=== PATIENT | female | born 1990 | race African-American/Black ===

== ENCOUNTER 2018-04-26 23:20 | Emergency (ER) | payer SELFPAY ==
[~2018-04-26] VITALS: Ht 157.5 cm; Wt 59.0 kg
[2018-04-26] MEDS ORDERED: ALBUTEROL2.5 MG/3 M INH (23:35)
[2018-04-27] MEDS ORDERED: Methocarbamol 750mg tab ORAL ONE (00:15)
[2018-04-27] MEDS ORDERED: Acetaminophen 500mg (ES) tab ORAL ONE (00:15)
[2018-04-27] MEDS ORDERED: TYLENOL EXTRA500 MG ORAL (00:21)
[2018-04-27] MEDS ORDERED: ROBAXIN-750750 MG PO (00:21)
[2018-04-27 00:32] VITALS: BP 112/78
[2018-04-27 00:33] VITALS: BP 112/78
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
== END 2018-04-27 00:33 | disposition home or self-care (01) ==
LOC: EMR 23:56
DX: R51 Headache (principal); M54.2 Cervicalgia; M54.5 Low back pain; V89.2XXA Person injured in unspecified motor-vehicle accident, traffic, initial encounter; Y92.9 Unspecified place or not applicable; J45.909 Unspecified asthma, uncomplicated
CPT/HCPCS: 99284

== ENCOUNTER 2018-08-23 13:00 | Emergency (ER) | payer OTHER ==
[~2018-08-23] VITALS: Ht 157.5 cm; Wt 59.0 kg
[~2018-08-23 13:00] MED LIST: ALBUTEROL2.5 MG/3 M INH; ROBAXIN-750750 MG PO; TYLENOL EXTRA500 MG ORAL
[2018-08-23] MEDS ORDERED: ROBAXIN500 MG PO (13:39)
[2018-08-23] MEDS ORDERED: LIDOCAINE700 M1 TP (13:39)
[2018-08-23] MEDS ORDERED: IBUPROFEN600 MG ORAL (13:39)
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
[2018-08-23] MEDS ORDERED: Ketorolac 30mg Inj IM ONE (13:45)
[2018-08-23] MEDS ORDERED: Methocarbamol 500mg tab ORAL ONE (13:45)
[2018-08-23 14:27] VITALS: BP 115/65
== END 2018-08-23 14:29 | disposition home or self-care (01) ==
LOC: EMR 14:07
DX: T14.8XXA Other injury of unspecified body region, initial encounter (principal); M54.2 Cervicalgia; M54.9 Dorsalgia, unspecified; V43.52XS Car driver injured in collision with other type car in traffic accident, sequela
CPT/HCPCS: 96372; 99283

== ENCOUNTER 2018-10-17 16:54 | Emergency (ER) | payer MEDICAID, OTHER ==
[~2018-10-17] VITALS: Ht 157.5 cm; Wt 59.0 kg
[~2018-10-17 16:54] MED LIST changes: +IBUPROFEN600 MG ORAL; +LIDOCAINE700 M1 TP; +ROBAXIN500 MG PO
[2018-10-17] MEDS ORDERED: Morphine Sulfate 4mg/ml Inj (IV/IM USE ONLY) IVP ONE ×3 (17:15→17:45)
[2018-10-17] MEDS ORDERED: IBUPROFEN800 MG ORAL ×2 (17:22→20:08)
[2018-10-17 17:37] LABS: BASOPHILS % (AUTO) 1.4 % (0.0-2.0); EOSINOPHILS % (AUTO) 6.2 % (0.0-3.0); HEMATOCRIT 32.2 % (37.0-47.0); HEMOGLOBIN 10.9 G/DL (12.0-16.0); LYMPHOCYTES % (AUTO) 20.2 % (20.0-45.0); MEAN CORPUSCULAR VOLUME 87 FL (80-99); MONOCYTES % (AUTO) 6.9 % (1.0-10.0); NEUTROPHILS % (AUTO) 65.3 % (45.0-75.0); PLATELET COUNT 248 K/UL (150-450); RED BLOOD COUNT 3.73 M/UL (4.20-5.40); WHITE BLOOD COUNT 11.6 K/UL (4.8-10.8)
[2018-10-17] MEDS ORDERED: Ketorolac 30mg Inj IV ONE (17:45)
--- NOTE | 2018-10-17 18:14 | Emergency Room Report ---
History of Present Illness General Chief Complaint: Complications Source: Patient Present Illness HPI This patient is 12 weeks by dates. She is in the process of having a miscarriage. The initial start the miscarriage was 5 days ago. The patient started with vaginal bleeding and over this past weekend has progressed to severe cramping. She was seen at [facility] last night and given pain medications. She states that her pain progressed and is now intolerable. She denies fever or chills. She denies nausea or vomiting. She has no other complaints. Allergies: Coded Allergies: No Known Allergies (Unverified , 04/26/18) Patient History Past Medical History: see triage record, asthma Social History: Denies: smoking, alcohol use, drug use Now: Yes Reviewed Nursing Documentation: PMH: Agreed; PSxH: Agreed Nursing Documentation-PMH Past Medical History: No History, Except For Hx Asthma: Yes Review of Systems All Other Systems: negative except mentioned in HPI Physical Exam Sp02 EP Interpretation: reviewed, normal General Appearance: no apparent distress, alert, GCS 15, non-toxic Head: normocephalic, atraumatic Eyes: bilateral eye normal inspection, bilateral eye PERRL ENT: hearing grossly normal, normal pharynx, no angioedema, normal voice Neck: full range of motion, supple/symm/no masses Respiratory: chest non-tender, lungs clear, normal breath sounds, no respiratory distress, no retraction, no accessory muscle use, speaking full sentences Cardiovascular #1: regular rate, rhythm, no edema Gastrointestinal: normal bowel sounds, soft, non-distended, no guarding, no rebound, tenderness - suprapubic ttp Rectal: deferred Genitourinary: other - Patient declined Musculoskeletal: back normal, gait/station normal, normal range of motion, non- tender Neurologic: alert, oriented x3, responsive, motor strength/tone normal, sensory intact, speech normal Psychiatric: judgement/insight normal, memory normal, mood/affect normal, no suicidal/homicidal ideation Skin: normal color, no rash, warm/dry, well hydrated Medical Decision Making Diagnostic Impression: Primary Impression: Retained products of conception ER Course This patient has retained products of conception. Ultrasound shows a thickened endometrium with echogenic structures. Retained products noted in the uterine cavity an area of the cervix. I discussed the case with the on-call OFFSET PRESS OPERATOR doctor Mckenna who recommended Cytotec and misoprostal. The patient was given 400 g of Cytotec here in the emergency department. She was given a prescription for 0.2 mg of misoprostal to take every 6 hours for 6 doses. Further discussion with the patient and she was given the misoprostal by [facility] yesterday. She did not fill the prescription and states that she didn't go because she was in so much pain. She did get pain control here in the emergency department with IV morphine and Toradol. There is no evidence of endometritis at this time. I will give a course of doxycycline for 7 days as a precaution and for prophylaxis. The patient is given very close return precautions and follow up instructions. Please note that this Emergency Department Report was dictated using [employer] machine operator technology software, occasionally this can lead to erroneous entry secondary to interpretation by the dictation equipment. Laboratory Tests Test 10/17/18 17:08 10/17/18 18:48 White Blood Count 11.6 K/UL (4.8-10.8) H Red Blood Count 3.73 M/UL (4.20-5.40) L Hemoglobin 10.9 G/DL (12.0-16.0) L Hematocrit 32.2 % (37.0-47.0) L Mean Corpuscular Volume 87 FL (80-99) Mean Corpuscular Hemoglobin 29.2 PG (27.0-31.0) Mean Corpuscular Hemoglobin Concent 33.7 G/DL (32.0-36.0) Red Cell Distribution Width 12.0 % (11.6-14.8) Platelet Count 248 K/UL (150-450) Mean Platelet Volume 8.0 FL (6.5-10.1) Neutrophils (%) (Auto) 65.3 % (45.0-75.0) Lymphocytes (%) (Auto) 20.2 % (20.0-45.0) Monocytes (%) (Auto) 6.9 % (1.0-10.0) Eosinophils (%) (Auto) 6.2 % (0.0-3.0) H Basophils (%) (Auto) 1.4 % (0.0-2.0) Sodium Level 139 MMOL/L (136-145) Potassium Level 4.1 MMOL/L (3.5-5.1) Chloride Level 107 MMOL/L (98-107) Carbon Dioxide Level 23 MMOL/L (21-32) Anion Gap 9 mmol/L (5-15) Blood Urea Nitrogen 10 mg/dL (7-18) Creatinine 0.8 MG/DL (0.55-1.30) Estimate Glomerular Filtration Rate > 60 mL/min (>60) Glucose Level 104 MG/DL (74-106) Calcium Level 9.0 MG/DL (8.5-10.1) Total Bilirubin 1.1 MG/DL (0.2-1.0) H Direct Bilirubin 0.2 MG/DL (0.0-0.3) Aspartate Amino Transferase (AST) 25 U/L (15-37) Alanine Aminotransferase (ALT) 39 U/L (12-78) Alkaline Phosphatase 101 U/L (46-116) Total Protein 7.9 G/DL (6.4-8.2) Albumin 3.6 G/DL (3.4-5.0) Globulin 4.3 g/dL Albumin/Globulin Ratio 0.8 (1.0-2.7) L Lipase 146 U/L (73-393) Human Chorionic Gonadotropin, Quant 7957 mIU/mL (1-6) H Urine Color Red Urine Appearance Turbid Urine pH 8 (4.5-8.0) Urine Specific Thompson 1.010 (1.005-1.035) Urine Protein 4+ (NEGATIVE) H Urine Glucose (UA) Negative (NEGATIVE) Urine Ketones 1+ (NEGATIVE) H Urine Blood 5+ (NEGATIVE) H Urine Nitrite Negative (NEGATIVE) Urine Bilirubin Negative (NEGATIVE) Urine Urobilinogen Normal MG/DL (0.0-1.0) Urine Leukocyte Esterase 1+ (NEGATIVE) H Urine RBC Pending Urine WBC Pending Urine Squamous Epithelial Cells Pending Urine Bacteria Pending CT/MRI/US Diagnostic Results CT/MRI/US Diagnostic Results : Imaging Test Ordered: US pelvic Impression RPOC. See official report. Status: improved Disposition: HOME, SELF-CARE Condition: Improved Referrals: NOT CHOSEN BRINA/,REFERRING (PCP) Tila Cross DO Oct 17, 2018 18:14
[2018-10-17 18:33] LABS: ANION GAP 9 mmol/L (5-15); BLOOD UREA NITROGEN 10 mg/dL (7-18); CARBON DIOXIDE 23 MMOL/L (21-32); CHLORIDE 107 MMOL/L (98-107); CREATININE 0.8 MG/DL (0.55-1.30); POTASSIUM 4.1 MMOL/L (3.5-5.1); SODIUM 139 MMOL/L (136-145)
[2018-10-17 18:43] LABS: ALANINE AMINOTRANSFERASE 39 U/L (12-78); ALBUMIN 3.6 G/DL (3.4-5.0); ALBUMIN/GLOBULIN RATIO 0.8 (1.0-2.7); ALKALINE PHOSPHATASE 101 U/L (46-116); ASPARTATE AMINO TRANSFERASE 25 U/L (15-37); BILIRUBIN,TOTAL 1.1 MG/DL (0.2-1.0)
[2018-10-17 18:45] LABS: BILIRUBIN,DIRECT 0.2 MG/DL (0.0-0.3)
[2018-10-17] MEDS ORDERED: Misoprostol 100mcg tab ORAL ONE (19:00)
[2018-10-17 19:05] VITALS: BP 156/65
[2018-10-17 19:07] LABS: APPEARANCE,URINE TURBID; BILIRUBIN, URINE NEGATIVE (NEGATIVE); COLOR,URINE RED; GLUCOSE, URINE (UA) NEGATIVE (NEGATIVE); KETONES,URINE 1+ (NEGATIVE); LEUKOCYTE ESTERASE ,URINE 1+ (NEGATIVE); NITRITE,URINE NEGATIVE (NEGATIVE); PH,URINE 8 (4.5-8.0); PROTEIN,URINE 4+ (NEGATIVE); UROBILINOGEN,URINE NORMAL MG/DL (0.0-1.0)
[2018-10-17] MEDS ORDERED: METHYLERGONOVI0.2 MG ORAL (20:00)
[2018-10-17] MEDS ORDERED: DOXYCYCLINE MO100 MG ORAL (20:03)
[2018-10-17] MEDS ORDERED: NORCO 5-325 TA1 EACH ORAL (20:08)
[2018-10-17 20:38] VITALS: BP 153/64
--- NOTE | 2018-10-18 10:18 | Diagnostic Imaging Report ---
Indication: Pelvic pain, vaginal bleeding, history of recent miscarriage Technique: Transabdominal images only. Transvaginal images not performed, per patient request and due to pelvic pain Comparison: none Findings: Exam is limited, due to the availability of only transit abdominal images. Uterus measures 11.4 cm length by 5.9 cm AP. Endometrium is thickened, measures 23 mm thick. The endometrium is heterogeneous, demonstrates scattered echogenic areas. Some fluid is seen in the endocervical canal. Right ovary measures 3.7 cm length. Left ovary measures 3.2 cm length. No free cul-de-sac fluid. No adnexal mass Impression: Limited exam, due to lack of endovaginal images Thickened somewhat heterogeneous endometrium, raising concern for retained products of conception status post spontaneous Fluid, probably old blood, within the endocervical canal Negative for adnexal mass
== END 2018-10-17 20:38 | disposition home or self-care (01) ==
LOC: EMR 17:25
DX: O02.1 Missed abortion (principal)
CPT/HCPCS: 36415; 76801; 80053; 81003; 82248; 83690; 84702; 85025; 86850; 86900; 86901; 96361; 96374; 96375; 99284; J1885; J2270; J2405; 76856

== ENCOUNTER 2018-10-27 21:11 | Emergency (ER) | payer OTHER ==
[~2018-10-27] VITALS: Ht 157.5 cm; Wt 62.6 kg
[~2018-10-27 21:11] MED LIST changes: +DOXYCYCLINE MO100 MG ORAL; +IBUPROFEN800 MG ORAL; +METHYLERGONOVI0.2 MG ORAL; +NORCO 5-325 TA1 EACH ORAL
[2018-10-27 21:31] VITALS: BP 109/62
[2018-10-27] MEDS ORDERED: ATIVAN1 MG ORAL (21:40)
[2018-10-27] MEDS ORDERED: IBUPROFEN600 MG ORAL (21:40)
--- NOTE | 2018-10-27 21:40 | Emergency Room Report ---
History of Present Illness General Chief Complaint: Headache Source: Patient Present Illness HPI Is a 28 year old female with an past medical history. She is had a miscarriage. She presents with chief complaint of headache. Has been ongoing for the last week. Throbbing in nature. Pain is 8 out of 10. Has photophobia. S1 episode vomiting last night. Also with chest pain. Slight cough and congestion. She hasn't been able to sleep much because of the stress of the miscarriage. Denies any suicidal thought homicidal thought. Denies any cough or congestion. Allergies: Coded Allergies: No Known Allergies (Unverified , 04/26/18) Patient History Past Medical History: see triage record, old chart reviewed Past Surgical History: none Pertinent Family History: none Social History: Denies: smoking Last Menstrual Period: 07/20/18 Now: No : 3 Para: 1 Immunizations: other Reviewed Nursing Documentation: PMH: Agreed; PSxH: Agreed Nursing Documentation-PMH Past Medical History: No History, Except For Hx Asthma: Yes Review of Systems Eye: Denies: eye pain, blurred vision ENT: Denies: ear pain, nose congestion, throat swelling Respiratory: Denies: cough, shortness of breath Cardiovascular: Reports: chest pain; Denies: palpitations Gastrointestinal: Denies: abdominal pain, diarrhea, nausea, vomiting Musculoskeletal: Denies: back pain, joint pain Skin: Denies: rash Neurological: Reports: headache; Denies: numbness Endocrine: Denies: increased thirst, increased urine Hematologic/Lymphatic: Denies: easy bruising All Other Systems: negative except mentioned in HPI Physical Exam Vital Signs Date Time Temp Pulse Resp B/P (MAP) Pulse Ox O2 Delivery O2 Flow Rate FiO2 10/27/18 21:19 97.9 77 18 109/62 98 Room Air vitals normal Sp02 EP Interpretation: reviewed, normal General Appearance: well appearing, no apparent distress, alert Head: normocephalic, atraumatic Eyes: bilateral eye PERRL, bilateral eye EOMI ENT: hearing grossly normal, normal pharynx Neck: full range of motion, supple, no meningismus Respiratory: chest non-tender, lungs clear, normal breath sounds Cardiovascular #1: regular rate, rhythm, no murmur Gastrointestinal: normal bowel sounds, non tender, no mass, no organomegaly, no bruit, non-distended Musculoskeletal: back normal, gait/station normal, normal range of motion Neurologic: alert, oriented x3 Psychiatric: mood/affect normal Skin: warm/dry Medical Decision Making Diagnostic Impression: Primary Impression: Headache Qualified Codes: G44.209 - Tension-type headache, unspecified, not intractable Additional Impression: Stress reaction ER Course Patient with headache exacerbated by stress and grief. No evidence of meningitis, bleed or neoplastic process. We'll discharge home. Last Vital Signs Date Time Temp Pulse Resp B/P (MAP) Pulse Ox O2 Delivery O2 Flow Rate FiO2 10/27/18 21:31 97.9 77 18 109/62 98 Room Air Status: improved Disposition: HOME, SELF-CARE Condition: Stable Scripts Ibuprofen* (MOTRIN*) 600 Mg Tablet 600 MG ORAL THREE TIMES A DAY, #30 TAB 0 Refills Prov: Sammy Santoro MD 10/27/18 Lorazepam* (ATIVAN*) 1 Mg Tablet 1 MG ORAL BEDTIME, #7 TAB Prov: Sammy Santoro MD 10/27/18 Patient Instructions: Tension Headache Additional Instructions: Follow-up with your doctor in 7 days. Return if symptom worsen. Sammy Santoro MD Oct 27, 2018 21:40
[2018-10-27] MEDS ORDERED: Ketorolac 60mg Inj IM ONE (21:45)
[2018-10-27 21:50] VITALS: BP 109/62
== END 2018-10-27 23:32 | disposition home or self-care (01) ==
LOC: EMR 21:30
DX: R51 Headache (principal); F43.9 Reaction to severe stress, unspecified; J45.909 Unspecified asthma, uncomplicated
CPT/HCPCS: 96372; 99283

== ENCOUNTER → 2018-12-20 | Emergency (ER) | payer OTHER ==
[~2018-12-20] VITALS: Ht 157.5 cm; Wt 59.0 kg
[~2018-12-20] MED LIST changes: +AMOXICILLIN500 MG ORAL; +ATIVAN1 MG ORAL
[2018-12-20 20:40] VITALS: BP 114/73
--- NOTE | 2018-12-20 20:40 | NUR ---
ED Nurse Note: Patient walk in c/o left earache and painful swallowing for 30 minutes. pt stating 10/10 pain. pt stated it feels like there something in there. pa on bedside. will continue to monitor
--- NOTE | 2018-12-20 21:08 | Emergency Room Report ---
History of Present Illness General Chief Complaint: Earache Source: Patient Present Illness [facility] This 28-year-old female with a history of asthma. She presents with chief complaint of left ear pain. Onset was acute and occurred about an hour or so ago. Patient was choking and was coughing hard and then felt sharp pain in her left ear. No fever chills but no nausea no vomiting. Denies any other problem. Pain is 8 out of 10. Worse with yawning and movement. Allergies: Coded Allergies: No Known Allergies (Unverified , 04/26/18) Patient History Past Medical History: see triage record, old chart reviewed, asthma Past Surgical History: none Pertinent Family History: none Social History: Denies: smoking Last Menstrual Period: 12/12/2018 Now: No Immunizations: other Reviewed Nursing Documentation: PMH: Agreed; PSxH: Agreed Nursing Documentation-PMH Past Medical History: No History, Except For Hx Asthma: Yes Review of Systems Eye: Denies: eye pain, blurred vision ENT: Reports: ear pain; Denies: nose congestion, throat swelling Respiratory: Denies: cough, shortness of breath Cardiovascular: Denies: chest pain, palpitations Gastrointestinal: Denies: abdominal pain, diarrhea, nausea, vomiting Musculoskeletal: Denies: back pain, joint pain Skin: Denies: rash Neurological: Denies: headache, numbness Endocrine: Denies: increased thirst, increased urine Hematologic/Lymphatic: Denies: easy bruising All Other Systems: negative except mentioned in HPI Physical Exam Vital Signs Date Time Temp Pulse Resp B/P (MAP) Pulse Ox O2 Delivery O2 Flow Rate FiO2 12/20/18 20:33 98.1 72 16 114/73 98 Room Air vitals normal Sp02 EP Interpretation: reviewed, normal General Appearance: well appearing, no apparent distress, alert Head: normocephalic, atraumatic Eyes: bilateral eye PERRL, bilateral eye EOMI ENT: hearing grossly normal, normal pharynx, other - Left ear: External canal normal. TMs show mild erythema especially along the bone. Neck: full range of motion, supple, no meningismus Respiratory: chest non-tender, lungs clear, normal breath sounds Cardiovascular #1: regular rate, rhythm, no murmur Gastrointestinal: normal bowel sounds, non tender, no mass, no organomegaly, no bruit, non-distended Musculoskeletal: back normal, gait/station normal, normal range of motion Psychiatric: mood/affect normal Skin: warm/dry Medical Decision Making Diagnostic Impression: Primary Impression: Otitic barotrauma, initial encounter Additional Impression: Otitis media Qualified Codes: H65.192 - Other acute nonsuppurative otitis media, left ear ER Course Patient presents with left ear pain. This most likely secondary to barotrauma from choking coughing. There is some erythema to the tympanic membrane. I will put her antibiotics for this. No perforation. We'll discharge home. Last Vital Signs Date Time Temp Pulse Resp B/P (MAP) Pulse Ox O2 Delivery O2 Flow Rate FiO2 12/20/18 20:40 98.1 68 16 114/73 98 Room Air Status: improved Disposition: HOME, SELF-CARE Condition: Stable Scripts Ibuprofen* (MOTRIN*) 600 Mg Tablet 600 MG ORAL THREE TIMES A DAY, #30 TAB 0 Refills Prov: Sammy Santoro MD 12/20/18 Amoxicillin* (AMOXIL*) 500 Mg Capsule 500 MG ORAL THREE TIMES A DAY, #21 CAP Prov: Sammy Santoro MD 12/20/18 Additional Instructions: Follow-up your doctor in 7 days. Return if symptom worsen. Try not to blow your nose. Sammy Santoro MD Dec 20, 2018 21:08
[2018-12-20 21:15] VITALS: BP 114/73
--- NOTE | 2018-12-20 21:15 | NUR ---
ED Nurse Note: pt cleared to d/c per ER provider, pt d/c instruction and prescription provided per ER Provider, pt education done via discussion and hand out, pt advised to follow up with pcp to continue care, pt verbalized understanding and agrees with plan, wristband removed. pt vss, ambulatory w/ steady gait. all belongings left w/ pt.
== END | disposition home or self-care (01) ==
LOC: EMR 21:41
DX: T70.0XXA Otitic barotrauma, initial encounter (principal); X58.XXXA Exposure to other specified factors, initial encounter; H66.92 Otitis media, unspecified, left ear; J45.909 Unspecified asthma, uncomplicated
CPT/HCPCS: 99282